=== PATIENT | female | born 1955 | race Caucasian/White ===

== ENCOUNTER 2018-11-28 22:19 | Emergency (ER) | payer OTHER ==
[~2018-11-28] VITALS: Ht 165.1 cm; Wt 65.8 kg
[2018-11-28 22:23] VITALS: Ht 165.1 cm; Wt 65.8 kg
[2018-11-28] MEDS ORDERED: SINGULAIR10 MG PO (22:24)
[2018-11-28 23:20] VITALS: BP 154/78
== END 2018-11-28 23:20 | disposition home or self-care (01) ==
LOC: D.ER 22:19 → EDBD 22:19 → D.ER 23:20
DX: S92.902A Unspecified fracture of left foot, initial encounter for closed fracture (principal); W18.31XA Fall on same level due to stepping on an object, initial encounter; Y93.89 Activity, other specified; Y92.89 Other specified places as the place of occurrence of the external cause